=== PATIENT | male | born 1955 | race Caucasian/White ===

== ENCOUNTER → 2018-11-17 | Outpatient (CLI) | payer OTHER ==
[~2018-11-17] VITALS: Ht 188 cm; Wt 160.6 kg
[~2018-11-17] MED LIST: REGADENOSON 0.4 MG/5 ML PF SYG IVP SCH
== END | disposition home or self-care (01) ==
LOC: SHCH 08:43
PROVIDERS: ATTEND Internal Medicine Cardiovascular Disease
DX: R07.9 Chest pain, unspecified (principal)
CPT/HCPCS: 78452; 93017; 96374; A9500 ×2; J2785

== ENCOUNTER → 2018-12-25 | Outpatient (CLI) | payer OTHER | END | disposition home or self-care (01) | LOC: RAH 08:29 | PROVIDERS: ATTEND Internal Medicine Cardiovascular Disease | DX: I08.0 Rheumatic disorders of both mitral and aortic valves (principal); I25.10 Atherosclerotic heart disease of native coronary artery without angina pectoris | CPT/HCPCS: 93306 ==

== ENCOUNTER 2019-01-04 07:30 | Day surgery (SDC) | payer OTHER ==
[2019-01-01 12:35] LABS: BASOPHILS % (AUTO) 0.9 % (0.0-5.0); EOSINOPHILS % (AUTO) 3.5 % (0.0-8.0); HEMATOCRIT 40.1 % (42-54); LYMPHOCYTES % (AUTO) 21.2 % (21.0-51.0); MEAN CORPUSCULAR HEMOGLOBIN 28.3 pg (27.0-33.0); MEAN CORPUSCULAR HGB CONC 32.1 g/dL (32.0-36.0); MEAN CORPUSCULAR VOLUME 88.3 fL (79-99); MONOCYTES % (AUTO) 6.2 % (3.0-13.0); NEUTROPHILS % (AUTO) 68.2 % (40.0-77.0); PLATELET COUNT (AUTO) 215 K/uL (130-400); RED BLOOD CELL COUNT(AUTO) 4.54 MIL/uL (4.50-6.20); RED CELL DISTRIBUTION WIDTH 16.7 % (11.0-15.5)
[2019-01-01 12:40] LABS: APPEARANCE,URINE Clear (CLEAR); BILIRUBIN,URINE Negative (NEGATIVE); COLOR,URINE Yellow (YELLOW); GLUCOSE, URINE (UA) Negative (NEGATIVE); KETONES,URINE Negative (NEGATIVE); LEUKOCYTE ESTERASE ,URINE Negative (NEGATIVE); NITRATE,URINE Negative (NEGATIVE); OCCULT BLOOD,URINE Negative (NEGATIVE); PH,URINE 6.5 (5.0-8.0); PROTEIN,URINE Negative (NEGATIVE)
[2019-01-01 12:42] LABS: CREATININE 1.9 mg/dL (0.5-1.5); POTASSIUM 4.3 mmol/L (3.5-5.1)
[2019-01-01 12:43] VITALS: BP 116/66
[2019-01-01 12:45] LABS: INR 0.97 (0.85-1.15); PROTHROMBIN TIME 10.2 SEC (9.6-11.6)
--- NOTE | 2019-01-01 14:02 | NUR ---
LABS INFORMED Liborio DE OLIVEIRA NP OF ABNORMAL BUN/CREA. NO ORDERS RECEIVED. PROCEED WITH PLANNED PROCEDURE.
[2019-01-04] VITALS (12 sets, daily range): BP systolic 114–166; BP diastolic 63–86
[~2019-01-04] VITALS: Ht 188 cm; Wt 161.9 kg
[~2019-01-04 07:30] MED LIST changes: +ALLO300T2 PO; +AMLO10TA7 PO; +ASPI-1197 PO; +CHOL200059 PO; +CYAN250014 PO; +DOCU250C90 PO; +DULO60CA63 PO; +FISH, FLAX, BORAGE PO; +FLUC150T6 PO; +INSU100I26 SQ; +IRON18TA PO; +LEVO75TA10 PO; +METOPROLOL PO; +MULT-1258 PO; +RANO500T2 PO; -REGADENOSON 0.4 MG/5 ML PF SYG IVP SCH; +SIMV20TA6 PO; +SODIUM CHLORIDE 0.9% 1000ML 1,000 ML IV SCH; +TAMS-1 PO
[2019-01-04] MEDS ORDERED: HEPARIN SODIUM 1000UNIT/ML 10ML VIAL ONE (11:37)
[2019-01-04] MEDS ORDERED: IOHEXOL-350 50ML VIAL IV ONE (11:38)
[2019-01-04] MEDS ORDERED: IOHEXOL 350 MG/ML 100ML INFUS..BTL IV ONE (11:38)
[2019-01-04] MEDS ORDERED: NITROGLYCERIN 5 MG/ML 10 ML VIAL IV ONE (11:38)
[2019-01-04] MEDS ORDERED: LIDOCAINE HCL 2% 20ML ONE (11:38)
[2019-01-04] MEDS ORDERED: GLUCAGON 1MG KIT 1 MG ML IM PRN (12:45)
--- NOTE | 2019-01-04 12:50 | NUR ---
PATIENT RETURNED FROM MAMMOGRAPHY TECHNICIAN IN NO DISTRESS, RIGHT GROIN SHOWS NO ACTIVE BLEEDING OR HEMATOMA. PATIENT DENIES ANY SOB OR CP. BOTH PATIENT AND FAMILY RECEIVED TEACHING ON BEING ON BEDREST FOR 3 HOURS, BOTH PATIENT AND FAMILY VERBALIZED UNDERSTANDING AND AGREED TO COMPLY.
--- NOTE | 2019-01-04 15:26 | NUR ---
PATIENT IN NO DISTRESS RIGHT GROIN SHOWS NO ACTIVE BLEEDING OR HEMATOMA.PT STATES FEELING WELL.
--- NOTE | 2019-01-04 16:30 | NUR ---
PATIENT ASSISTED UP TO CHAIR, RIGHT GROIN IS CLEAN AND DRY. PATIENT DENIES ANY CHEST PAIN OR SOB.
== END 2019-01-04 17:03 | disposition home or self-care (01) ==
LOC: DAH 07:30
PROVIDERS: ATTEND Internal Medicine Cardiovascular Disease
DX: I25.118 Atherosclerotic heart disease of native coronary artery with other forms of angina pectoris (principal); I35.0 Nonrheumatic aortic (valve) stenosis; E03.9 Hypothyroidism, unspecified; E66.01 Morbid (severe) obesity due to excess calories; M10.9 Gout, unspecified; I44.7 Left bundle-branch block, unspecified; I12.9 Hypertensive chronic kidney disease with stage 1 through stage 4 chronic kidney disease, or unspecified chronic kidney disease; E11.22 Type 2 diabetes mellitus with diabetic chronic kidney disease; N18.3 Chronic kidney disease, stage 3 (moderate); E11.51 Type 2 diabetes mellitus with diabetic peripheral angiopathy without gangrene; Z79.82 Long term (current) use of aspirin; Z79.899 Other long term (current) drug therapy; E78.5 Hyperlipidemia, unspecified; E11.40 Type 2 diabetes mellitus with diabetic neuropathy, unspecified; Z98.890 Other specified postprocedural states; G47.33 Obstructive sleep apnea (adult) (pediatric)
CPT/HCPCS: 36415; 71045; 80048; 81003; 82948 ×3; 85025; 85610; 85730; 93005; 93458; A4606; C1760; C1894; J1644; J3490 ×2; Q9965; Q9967 ×2

== ENCOUNTER → 2019-01-22 | Outpatient (CLI) | payer OTHER ==
[~2019-01-22] MED LIST changes: -SODIUM CHLORIDE 0.9% 1000ML 1,000 ML IV SCH
== END | disposition home or self-care (01) ==
LOC: RAH 12:55
PROVIDERS: ATTEND Family Medicine
DX: R51 Headache (principal)
CPT/HCPCS: 70450